=== PATIENT | male | born 1965 | race Caucasian/White ===

== ENCOUNTER 2016-12-15 19:06 | Emergency (ER) | payer OTHER ==
[~2016-12-15] VITALS: Ht 182.9 cm; Wt 100.0 kg
[2016-12-15 19:09] VITALS: TEMP 98.8
[2016-12-15] MEDS ORDERED: PRINIVIL20 MG PO (19:12)
[2016-12-15 21:00] VITALS: BP 167/106; PULSE 81
== END 2016-12-15 21:12 | disposition home or self-care (01) ==
LOC: COL.ER 19:06
DX: T65.6X1A Toxic effect of paints and dyes, not elsewhere classified, accidental (unintentional), initial encounter (principal); T26.62XA Corrosion of cornea and conjunctival sac, left eye, initial encounter; H10.213 Acute toxic conjunctivitis, bilateral